=== PATIENT | male | born 1975 ===

== ENCOUNTER → 2017-08-28 | Outpatient (CLI) | payer OTHER ==
[~2017-08-28] MED LIST: CYCL10 PO; DOCU100 PO; LEVFLO500 PO; METR500 PO; Prilosec Otc20 MG PO; RXCYCL10 PO; RXTRAM50 PO; TERB250 PO; TRAM50 PO
== END ==
LOC: LAB 10:10 → LAB SHORT 10:10
DX: L98.9 Disorder of the skin and subcutaneous tissue, unspecified (principal)
CPT/HCPCS: 88305

== ENCOUNTER 2022-10-21 12:30 | Day surgery (SDC) | payer OTHER ==
[~2022-10-21] VITALS: Ht 182.9 cm; Wt 135.7 kg
[2022-10-21] MEDS ORDERED: ATOR10 (12:48)
[2022-10-21] MEDS ORDERED: MELO7.5 (12:49)
[2022-10-21] MEDS ORDERED: Vyvanse30 MG (12:49)
[2022-10-21] MEDS ORDERED: MULTI-VITAMIN1 EAC2 (12:52)
[2022-10-21] MEDS ORDERED: VITAMIN D31000 UNI1 (12:52)
[2022-10-21] MEDS ORDERED: GLUCHON (12:52)
[2022-10-21] MEDS ORDERED: Vitamin B-12100 MCG (12:52)
[2022-10-21] MEDS ORDERED: Vitamin C100 M1 (12:53)
== END 2022-10-21 15:23 | disposition home or self-care (01) ==
LOC: ORSCSDS 12:30
PROVIDERS: Internal Medicine Gastroenterology
PROC: 0DBE8ZX Excision of Large Intestine, Via Natural or Artificial Opening Endoscopic, Diagnostic (ICD-10-PCS; principal; 2022-10-21 13:45)
DX: R19.4 Change in bowel habit (principal); G47.33 Obstructive sleep apnea (adult) (pediatric); E66.01 Morbid (severe) obesity due to excess calories; Z68.41 Body mass index [BMI] 40.0-44.9, adult; Z79.899 Other long term (current) drug therapy
CPT/HCPCS: 88305; J2704

== ENCOUNTER 2025-02-28 06:56 | Day surgery (SDC) | payer OTHER ==
[~2025-02-28] VITALS: Ht 182.9 cm; Wt 134.7 kg
[2025-02-28] VITALS (10 sets, daily range): BP systolic 112–138; BP diastolic 65–92
[~2025-02-28 06:56] MED LIST changes: +ALGAL OMEGA-3200 MG PO; +ATOR10 PO; +Alph-E-Mixed400 UNIT PO; +GLUCHON PO; +LOSA50 PO; +MELO7.5 PO; +MULTI-VITAMIN1 EAC2 PO; +Vitamin B-12100 MCG PO; +Vitamin C100 M1; +Vitamin D1000 UNI1 PO; +Vyvanse30 MG PO; +ZYRTEC10 M2 PO
[2025-02-28] MEDS ORDERED: CeFAZolin Sodium 3,000 MG in NS 100 ML IV SCH (07:20)
[2025-02-28] MEDS ORDERED: FentaNYL Citrate 50 MCG/ML 2 ML Injection ONE (07:58)
[2025-02-28] MEDS ORDERED: Dexamethasone Sod Phos 10 MG/ML 1ML VIAL ONE (08:19)
[2025-02-28] MEDS ORDERED: Sugammadex Sodium 200 MG/2ML SDV (100 MG/ML) ONE (08:19)
[2025-02-28] MEDS ORDERED: Rocuronium Bromide 10 MG/ML 5ML Injection IV ONE ×2 (08:19→08:53)
[2025-02-28] MEDS ORDERED: Ondansetron HCl 2 MG / ML 2ML Vial ONE ×2 (08:19→10:51)
[2025-02-28] MEDS ORDERED: Metoclopramide HCl 5MG / ML 2ML Vial IV PRN (08:20)
[2025-02-28] MEDS ORDERED: Midazolam HCl 1MG / ML 2ML Vial IV PRN (08:20)
[2025-02-28] MEDS ORDERED: HYDROmorphone HCl/Pf 1MG SYR IV PRN (08:20)
[2025-02-28] MEDS ORDERED: FentaNYL Citrate 50 MCG/ML 2 ML Injection IV PRN ×2 (08:20)
[2025-02-28] MEDS ORDERED: Ondansetron HCl 2 MG / ML 2ML Vial IV PRN (08:25)
--- NOTE | 2025-02-28 08:29 | NUR ---
History, Chart, Medications and Allergies reviewed before start of procedure. Pre-Op teaching done. Pt verbalizes understanding. Patient confirms NPO status and agrees with scheduled surgery. PT GLASSES PLACED IN PACU.
[2025-02-28] MEDS ORDERED: Bupivacaine 0.5% HCl 5 MG/ML 30MLVIAL ONE (08:35)
[2025-02-28] MEDS ORDERED: Ketorolac Tromethamine 30mg Vial ONE (09:35)
[2025-02-28] MEDS ORDERED: Phenylephrine HCl 100 MCG/ML-NS 10MLSYR (1MG/10ML) ONE (09:43)
[2025-02-28] MEDS ORDERED: OxyCODONE 5 mg/Acetamin 325 mg TABLET PO PRN (10:25)
[2025-02-28] MEDS ORDERED: Metoclopramide HCl 5MG / ML 2ML Vial ONE (10:38)
--- NOTE | 2025-02-28 11:45 | NUR ---
Discharge instructions reviewed with patient. Patient verbalizes understanding. Copy given to patient to take home. Prescriptions given to package delivery driver. Abd binder in place. Dressing c/d/i. Patient States Post-Procedure ride home has been arranged. Discharged via wheelchair to private car for ride home.
== END 2025-02-28 11:45 | disposition home or self-care (01) ==
LOC: ORSCMMR 06:56 → ORD 07:30 → ORSCMMR 08:30 → ORD 08:30 → ORSCMMR 11:45
PROVIDERS: Surgery
PROC: 0WUF0JZ Supplement Abdominal Wall with Synthetic Substitute, Open Approach (ICD-10-PCS; principal; 2025-02-28 08:30)
DX: K43.0 Incisional hernia with obstruction, without gangrene (principal); I10 Essential (primary) hypertension; K21.9 Gastro-esophageal reflux disease without esophagitis; E66.01 Morbid (severe) obesity due to excess calories; Z68.41 Body mass index [BMI] 40.0-44.9, adult; E78.5 Hyperlipidemia, unspecified; G47.33 Obstructive sleep apnea (adult) (pediatric); F90.9 Attention-deficit hyperactivity disorder, unspecified type; Z79.899 Other long term (current) drug therapy
CPT/HCPCS: C1781; J0690; J1100; J1885; J2371; J2405; J2704; J2765; J3010; J7120